=== PATIENT | female | born 1970 | race Caucasian/White ===

== ENCOUNTER 2016-08-28 17:54 | Outpatient (CLI) | payer OTHER ==
--- NOTE | 2016-08-28 18:19 | DIAGNOSTIC IMAGING REPORT ---
PROCEDURE: XR SHOULDER 2 OR MORE VW-LEFT INDICATION: Chronic left shoulder pain, initial encounter TECHNIQUE: Three views. COMPARISON: None. FINDINGS: Moderate AC joint degenerative changes. Normal glenohumeral joint. No fracture or dislocation. Multiple soft tissue calcifications adjacent to the humeral head consistent with tendonitis, which measures 3 cm as an aggregate. IMPRESSION: 1. Extensive calcific tendonitis 2. Moderate AC joint degenerative changes
== END 2016-08-28 23:00 ==
LOC: XR SRH 17:54
DX: M75.32 Calcific tendinitis of left shoulder (principal); M19.012 Primary osteoarthritis, left shoulder

== ENCOUNTER → 2016-11-29 | Outpatient (CLI) | payer OTHER ==
--- NOTE | 2016-11-29 11:03 | DIAGNOSTIC IMAGING REPORT ---
PROCEDURE: MR UPPER EXTREMITY W/O CONT-LT INDICATION: Chronic left shoulder pain. TECHNIQUE: PD and FAT-SAT PD, axial, and coronal-oblique images. PD and STIR sagittal-oblique images. COMPARISON: Left shoulder x-ray 08/28/2016 FINDINGS: Mild to moderate left AC joint degenerative changes and Type 2 acromion resulting in mild impingement. There is a 2.5 cm long segment of the supraspinatus tendon corresponding to the calcific tendonitis seen on plain films. There is a small insertional partial thickness tear of the supraspinatus tendon. Trace subacromial effusion. There is no subdeltoid effusion. In the absence of intra-articular contrast, labrum is grossly normal. Normal position and signal intensity of the bicipital tendon. Normal glenohumeral ligaments. Normal rotator interval. No suspicious osseous lesions. IMPRESSION: 1. Mild to moderate left AC joint degenerative changes and type 2 acromion resulting in mild impingement 2. Extensive calcific tendonitis of the distal supraspinatus tendon 3. Small insertional partial thickness tear of the supraspinatus tendon 4. Trace subacromial effusion.
== END ==
LOC: MRI SRH 11-26 11:00
DX: M75.42 Impingement syndrome of left shoulder (principal); M75.32 Calcific tendinitis of left shoulder